=== PATIENT | male | born 1955 | race Caucasian/White ===

== ENCOUNTER 2017-05-08 19:48 | Observation (INO) | payer MEDICARE, OTHER ==
--- NOTE | 2017-05-08 21:30 | CT ---
CT HEAD NONCONTRAST 05/08/17 COMPARISON: 06/28/14. INDICATION: Diplopia. FINDINGS: No evidence of intracranial hemorrhage, mass effect or midline shift or ventriculomegaly. Exam is crystal ssly stable. IMPRESSION: No acute intracranial abnormality. Should neurologic symptoms persists, consider brain MRI as necessa ry for continued assessment. POS: [facility]
[2017-05-08 22:19] LABS: #Eosinphils 0.2 thou/uL (0.0-0.7); #Monocytes 0.4 thou/uL (0.11-0.59); #Neutrophils 2.9 thou/uL (1.40-6.50); %Basophils 0.8 % (0.0-1.0); %Eosinophils 3.3 % (0.0-10.0); %Lymphocytes 35.9 % (21.0-51.0); %Monocytes 7.7 % (0.0-10.0); Hematocrit 42.9 % (42.0-52.0); Mean Platelet Volume 8.5 fL (7.4-10.4); Red Blood Cell (RBC) Count 4.74 mill/uL (4.70-6.10); White Blood Cell (WBC) Count 5.5 thou/uL (4.8-10.8)
[2017-05-08 22:21] LABS: PTT 33.9 SEC (22.9-36.1); Prothrombin Time 13.7 SEC (12.0-14.7)
[2017-05-08 22:36] LABS: ALT (SGPT) 27 U/L (8-55); AST (SGOT) 38 U/L (5-34); Alkaline Phosphatase 66 U/L (40-150); Anion Gap 9 mmol/L (10-20); BUN (Urea Nitrogen) 24 mg/dL (8.4-25.7); Bilirubin, Total 0.6 mg/dL (0.2-1.2); Calc. Creatinine Clearance 0 mL/min (70-130); Calcium 10.2 mg/dL (7.8-10.44); Carbon Dioxide 32 mmol/L (23-31); Chloride 100 mmol/L (98-107); Estimated GFR-MDRD 69; Globulin 4.1 g/dL (2.4-3.5); Protein, Total 8.1 g/dL (5.8-8.1)
[2017-05-08 22:39] LABS: Troponin I 0.013 ng/mL (< 0.028)
[2017-05-08 22:53] LABS: Bilirubin Negative (Negative); Blood, Urine Negative (Negative); Glucose, Urine (Dipstick) Negative (Negative); Ketone, Urine Negative (Negative); Nitrite Negative (Negative); Protein, Urine (Dipstick) Trace mg/dL (Neg-Trace)
[2017-05-08] MEDS ORDERED: Ondansetron HCl/PF 4 MG/2 ML Vial IVP PRN (23:45)
[2017-05-08] MEDS ORDERED: Ondansetron ODT 4 MG TAB SL PRN (23:45)
[2017-05-08] MEDS ORDERED: Acetaminophen 325 MG TAB PO PRN (23:45)
[2017-05-09] MEDS ORDERED: Dextrose 5% in Water 1,000 ML IV PRN (00:03)
[2017-05-09] MEDS ORDERED: Ondansetron ODT 4 MG TAB PO PRN (00:03)
[2017-05-09] MEDS ORDERED: Dextrose 50% Abboject 50 ML SYRINGE SLOW IVP PRN (00:03)
[2017-05-09] MEDS ORDERED: Calcium Carbonate 500 MG ChewTAB PO PRN (00:03)
[2017-05-09] MEDS ORDERED: HumaLOG 300 UNITS/3 ML VIAL SC PRN (00:03)
[2017-05-09 00:28] VITALS: BMI 32.3
[2017-05-09] MEDS: Sodium Chloride 0.9% 1,000 ML IV SCH ×3 (01:38→21:38)
[2017-05-09] MEDS: HYDROcodone/Acetaminophen 10/325 mg Tablet PO PRN ×4 (03:10→20:25)
--- NOTE | 2017-05-09 04:30 | HP-2 ---
DATE OF ADMISSION: 05/08/2017 LOCATION: [facility] in [place], [place] CODE STATUS: FULL. PRIMARY CARE PHYSICIAN: WICHO. ATTENDING PHYSICIAN: Dr. Ruth Warren RESIDENT PHYSICIAN: Dr. Joe Shetty HISTORIAN: The history provided by the patient. CHIEF COMPLAINT: Double vision. HISTORY OF PRESENT ILLNESS: The patient is a 62-year-old male with past medical history of hypertens ion, type 2 diabetes, hepatitis C, status post Harvoni, treatment, and history of Lew's palsy, prese nted for chief complaint of vertical diplopia since Saturday when he woke up Saturday morning. The patie nt reports that the double vision has been unchanged since onset and reports worsening of symptoms wi th head tilted posteriorly and eyes directed forward in addition to worsening with viewing of distant objects and worsening of symptoms with far right gaze. The patient reports his symptoms are relieve d with head tilted downward with eyes forward in addition to close objects. He denied associated narendra st pain, shortness of breath, weakness, numbness, tingling, tinnitus, clumsiness headache, eye pain a nd loss of vision. ER COURSE: In the ER, the patient was given 81 mg of aspirin. PAST MEDICAL HISTORY: 1. Hypertension. 2. Hyperlipidemia. 3. Type 2 diabetes. 4. Lew's palsy. 5. Hepatitis C, status post Harvoni treatment. PAST SURGICAL HISTORY: Cataract surgery bilaterally. ALLERGIES: No known drug allergies. MEDICATIONS: 1. Losartan 100 mg daily. 2. Hydrochlorothiazide 25 mg daily. 3. Metformin 500 mg p.o. b.i.d. 4. Coreg 25 mg b.i.d. 5. [place] 10/325 b.i.d. p.r.n. for pain. 6. Levemir 60 units q.a.c. and at bedtime. 7. NovoLog insulin sliding scale. FAMILY HISTORY: None. SOCIAL HISTORY: The patient has a 27-kaeo-plii history, quit smoking tobacco approximately 5 years a go; however, reports now that he does chewing tobacco for the last 2-3 years and reports that he chew s approximately 2 cans every week. Alcohol: The patient is a prior drinker, sober over [address] desir: The patient reports a prior THC use. Otherwise, denies any other drug use. Denies recent drug use. REVIEW OF SYSTEMS: GENERAL: The patient denies fever, chills, weight, appetite and sleep changes. Denies fatigue. EYES: The patient complains of vision changes, denies eye pain. ENT: Denies nasal congestion, rhinorrhea, sore throat and tinnitus. RESPIRATORY: Denies cough, congestion, shortness of breath. CARDIOVASCULAR: Denies chest pain, palpitations or edema. GI: Denies nausea, vomiting, diarrhea, constipation, abdominal pain. SKIN: Denies rashes, lesions, jaundice. MUSCULOSKELETAL: The patient complains of pain, arthritis and arthralgias. This is chronic and unch anged from his baseline. NEURO: Denies weakness, numbness or syncope. PSYCHIATRIC: Denies anxiety. PHYSICAL EXAMINATION: VITAL SIGNS: In the ER, blood pressure 141/94, pulse 90, respiratory rate 14, T-max 98.4, pulse ox 9 8% on room air. Current weight 113 kilograms. GENERAL: The patient is alert and oriented, in no acute distress. Well-developed, obese, appropriat jeanne interactive. EYES: Pupils are equal, round, reactive to light with accommodation. There is extraocular muscle de ficit involving the right superior oblique muscle. Otherwise, conjunctivae are within normal limits. ENT: TMs are pearly thomas without bulging or erythema. Oropharynx is within normal limits. NECK: Supple, without lymphadenopathy. No thyromegaly. CARDIOVASCULAR: Regular rate and rhythm. No murmurs, rubs or gallops. Radial pulses 2+. RESPIRATORY: Normal effort, no retractions. Lungs are clear to auscultation bilaterally. SKIN: Warm and dry. No cyanosis. ABDOMEN: Soft, nontender, normoactive bowel sounds, no masses, distention or organomegaly. EXTREMITIES: No clubbing, cyanosis or edema. MUSCULOSKELETAL: Structure is within normal limits. Tone within normal limits, musculoskeletal stre ngth is 5/5 and patient has full active range of motion. NEUROLOGIC: The patient has focal neurologic deficit involving cranial nerve 4 and 7. Specifically, deficit of the superior oblique muscle of the right eye as well as very mild ptosis of the left eyel id in addition to residual left-sided deficit of cranial nerve 7 which the patient reports is unchang ed from baseline and has been present since his previous diagnosis of Lew's palsy. The patient's de ep tendon reflexes are 2/4. Cranial nerves II-XII are otherwise intact minus cranial nerve 4 and 7. GCS 15. PSYCHIATRIC: The patient is appropriately interactive. LABORATORY DATA: White blood cell 5.5, hemoglobin 14.3, hematocrit 42.9, platelets 107. Sodium 137, potassium 3.7, chloride 100, bicarbonate 32, BUN 24, creatinine 1.08, glucose 134, calcium 10.2, tot al protein 8.1, albumin 4.0, AST 38, ALT 27, alkaline phosphatase 66, total bilirubin 0.6, estimated GFR is 69. Hemoglobin A1c was 11.9 on prior admission from June of this year. PT 13.7, PTT 33.9, INR 1.0. CK-MB 6.3, troponin I 0.013. IMAGING: Brain CT showed no acute intracranial abnormality. ASSESSMENT AND PLAN: 1. New onset vertical diplopia. We will get had a CT angiogram of the head and neck stat to rule ou t any aneurysm and embolic event versus stenosis. Consider a.m. MRI. This is likely secondary to cr anial 4 palsy on the right. Consider a.m. neuro consult. 2. Hypertension. Patient will need home medications reconciled and has received his home medication s tonight. Okay to continue home medications in the morning as there is low suspicion for transient ischemic attack versus cerebrovascular accident. There is no need for permissive hypertension. 3. Type 2 diabetes. The patient will be continued on home dose Levemir 60 units b.i.d. as well as m oderate insulin sliding scale, Accu-Cheks q.a.c. and at bedtime. 4. Hyperlipidemia. The patient was placed on Atorvastatin 40 mg at bedtime. 5. Thrombocytopenia. Coags are normal. The patient was given a low dose aspirin instead of high do se secondary to the low platelets, we will trend with daily CBC. 6. Hepatitis C, status post Harvoni, treatment. Per patient, this has resolved. 7. Prophylaxis. Patient will be given SCDs and Tums for deep venous thrombosis and gastrointestinal prophylaxis respectively. DISPOSITION/LENGTH OF HOSPITAL STAY: Less than or equal to 2 days. Symptomatic medication will be provided. History and physical exam well as management discussed with Dr. Ruth Warren who agrees with the above history, physical exam, assessment and plan unless otherwise noted in her addendum.
[2017-05-09 05:46] LABS: #Eosinphils 0.1 thou/uL (0.0-0.7); #Lymphocytes 1.8 thou/uL (1.20-3.40); #Monocytes 0.4 thou/uL (0.11-0.59); %Eosinophils 3.2 % (0.0-10.0); %Lymphocytes 40.7 % (21.0-51.0); %Monocytes 9.5 % (0.0-10.0); Hematocrit 40.4 % (42.0-52.0); Mean Platelet Volume 8.6 fL (7.4-10.4); White Blood Cell (WBC) Count 4.4 thou/uL (4.8-10.8)
[2017-05-09 05:56] LABS: Anion Gap 7 mmol/L (10-20); BUN (Urea Nitrogen) 22 mg/dL (8.4-25.7); Calc. Creatinine Clearance 121 mL/min (70-130); Calcium 9.5 mg/dL (7.8-10.44); Carbon Dioxide 29 mmol/L (23-31); Chloride 102 mmol/L (98-107); Cholesterol 137 mg/dl (< 200 Desired); Estimated GFR-MDRD 77; LDL Cholesterol, Calculated 69 mg/dL
[2017-05-09] MEDS ORDERED: INSULIN DETEMIR SC SCH ×2 (09:00→21:00)
[2017-05-09] MEDS ORDERED: Aspirin 81 mg Enteric Coated Tablet PO SCH (09:00)
[2017-05-09] MEDS ORDERED: ADMIXTURE FEE SC SCH ×2 (09:00→21:00)
--- NOTE | 2017-05-09 09:44 | CT ---
PRELIMINARY REPORT/[facility]/EMERGENCY AFTER HOURS PROCEDURE: EXAM: CT Angiography Head With Intravenous Contrast CLINICAL HISTORY: 62 years old, male; Signs and symptoms; Other: R/O CVA TECHNIQUE: Axial computed tomographic angiography images of the head with intravenous contrast using CT angiogra phy protocol. CONTRAST: 100 mL of ISOVUE administered intravenously. COMPARISON: None. FINDINGS: Right internal carotid artery: No acute findings. Intracranial segment is patent with no significant stenosis. No aneurysm. Right anterior cerebral artery: Normal. No occlusion or significant stenosis. No aneurysm. Right middle cerebral artery: Normal. No occlusion or significant stenosis. No aneurysm. Right posterior cerebral artery: Normal. No occlusion or significant stenosis. No aneurysm. Right vertebral artery: Normal as visualized. Left internal carotid artery: No acute findings. Intracranial segment is patent with no significant s tenosis. No aneurysm. Left anterior cerebral artery: Normal. No occlusion or significant stenosis. No aneurysm. Left middle cerebral artery: Normal. No occlusion or significant stenosis. No aneurysm. Left posterior cerebral artery: Normal. No occlusion or significant stenosis. No aneurysm. Left vertebral artery: Normal as visualized. Basilar artery: Normal. No occlusion or significant stenosis. No aneurysm. IMPRESSION: Normal head CTA. Thank you for allowing us to participate in the care of your patient. Dictated and Authenticated by: Gal Manzo MD 05/09/2017 1:23 AM Central Time ([place] & [place]) EXAM: CT Angiography Neck With Intravenous Contrast CLINICAL HISTORY: 62 years old, male; Signs and symptoms; Other: R/O CVA TECHNIQUE: Axial computed tomographic angiography images of the neck with intravenous contrast using CT angiogra phy protocol. MIP reconstructed images were created and reviewed. COMPARISON: No relevant prior studies available. FINDINGS: VASCULATURE: Right common carotid artery: Mild intimal thickening of the distal common carotid arteries bilaterall y. No significant stenosis. No dissection or occlusion. Right internal carotid artery: Normal. Extracranial segment is patent with no significant stenosis. N o dissection or occlusion. Right external carotid artery: Normal. No occlusion. Right vertebral artery: Normal. No significant stenosis. No dissection or occlusion. Left common carotid artery: See above. Left internal carotid artery: Mild mixed atherosclerotic plaque within the proximal left internal car otid artery, causing less than 20% luminal narrowing. Left external carotid artery: Normal. No occlusion. Left vertebral artery: Normal. No significant stenosis. No dissection or occlusion. NECK: Bones/joints: Multilevel cervical spine degenerative changes. Mild reversal of normal cervical spine lordosis, likely secondary to patient positioning and/or degenerative changes. Minimal multilevel deg enerative spondylolisthesis. No acute fracture. No dislocation. Soft tissues: Normal as visualized. No mass. CAROTID STENOSIS REFERENCE USING NASCET CRITERIA: % ICA stenosis = (1 - narrowest ICA diameter/diameter of distal cervical ICA) x 100. Mild - <50% stenosis. Moderate - 50-69% stenosis. Severe - 70-94% stenosis. Near occlusion - 95-99% stenosis. Occluded - 100% stenosis. IMPRESSION: 1. No acute findings. 2. Non-acute findings are described above. Thank you for allowing us to participate in the care of your patient. Dictated and Authenticated by: Gal Manzo MD 05/09/2017 1:40 AM Central Time ([place] & [place]) FINAL REPORT EMERGENCY AFTER HOURS CT ANGIO HEAD AND NECK WITH IV CONTRAST: Date: 05/09/17 CT ANGIO OF HEAD: Multiple axial tomograms obtained through the head with IV enhancement in the arterial phase followin g angio protocol with multiplanar reconstruction and 3D postprocessing. HISTORY: Assess for CVA. FINDINGS: Intracranial internal carotid arteries, visualized cerebral arteries, and basilar artery appear unrem arkable. IMPRESSION: Unremarkable CT angio of head. I am in agreement with the preliminary report issued by [facility]. CT ANGIO OF NECK: Multiple axial tomograms obtained through the neck with IV enhancement in the arterial phase followin g angio protocol with multiplanar reconstruction and 3D postprocessing. HISTORY: CVA. FINDINGS: Common carotid arteries are unremarkable. Carotid bulbs are unremarkable. Mild atherosclerotic change seen in the bulbs bilaterally, slightly more prominent on the left; however, there is no evidence of significant stenosis identified in either common carotid artery or internal carotid artery. Vertebr al arteries are patent. There is a dominant left vertebral. IMPRESSION: No evidence of significant stenosis seen in the extracranial carotid arteries. I am in agreement with the preliminary report issued by [facility]. POS: [facility]
--- NOTE | 2017-05-09 14:14 | PDOC.FM ---
- Subjective Subjective: Complains of vertical diplopia. Denies other neuro focal deficits. - Objective MAR Reviewed: Yes Vital Signs & Weight: Vital Signs (12 hours) Temp Pulse Pulse Resp BP BP BP 05/09/17 11:52 98.3 F 73 18 165/93 H 05/09/17 08:35 73 156/94 H 166/96 H 05/09/17 08:00 98.4 F 74 18 05/09/17 07:54 98.4 F 74 18 156/94 H 05/09/17 04:00 97.7 F 83 18 141/79 H Pulse Ox 05/09/17 11:52 98 05/09/17 08:35 05/09/17 08:00 05/09/17 07:54 98 05/09/17 04:00 98 I&O: 05/08/17 05/09/17 05/10/17 06:59 06:59 06:59 Intake Total 1460 Output Total 1400 1175 Balance 60 -1175 Result Diagrams: 05/09/17 05:30 05/09/17 05:30 Phys Exam - Physical Examination Constitutional: NAD HEENT: PERRLA, moist MMs Respiratory: no wheezing, no rales, no rhonchi Cardiovascular: RRR, no significant murmur Gastrointestinal: soft, non-tender, no distention, positive bowel sounds Musculoskeletal: no edema Psychiatric: normal affect, A&O x 3 Deviation from normal: eomi, perrla, normal strength testing and sensation in b/ l upper and lower extrem Dx/Plan (1) Suspected cerebrovascular accident (CVA) Code(s): I63.9 - CEREBRAL INFARCTION, UNSPECIFIED Status: Acute (2) HTN (hypertension) Code(s): I10 - ESSENTIAL (PRIMARY) HYPERTENSION Status: Chronic (3) HLD (hyperlipidemia) Code(s): E78.5 - HYPERLIPIDEMIA, UNSPECIFIED Status: Chronic (4) Diabetes mellitus type 2 in obese Code(s): E11.69 - TYPE 2 DIABETES MELLITUS WITH OTHER SPECIFIED COMPLICATION; E66.9 - OBESITY, UNSPECIFIED Status: Chronic (5) Hx of hepatitis C Code(s): Z86.19 - PERSONAL HISTORY OF OTHER INFECTIOUS AND PARASITIC DISEASES Status: Chronic (6) Anxiety Code(s): F41.9 - ANXIETY DISORDER, UNSPECIFIED Status: Chronic (7) Peripheral neuropathy Code(s): G62.9 - POLYNEUROPATHY, UNSPECIFIED Status: Chronic - Plan Plan: 62 yo male presents with vertical diplopia admitted for CVA rule out. 1.)CVA rule out CT without contrast of brain: negative for intracranial bleede CTA Head and NEck: negative for sig blockage MRI pending Lipid profile Atorvastatin 40mg, plan to increase to 80mg Aspirin 325mg daily 2.)HTN continue Lisinopril 3.)DM, type 2 metformin BI 3.)HLD atorvastain 40mg
--- NOTE | 2017-05-09 15:01 | ADD-PRG ---
ADDENDUM This is an addendum to the note of Dr. Brittny Duarte. Mr. Johnston is a pleasant 62-year-old white male who was admitted with a probable TIA versus CVA consist ing of vertical diplopia. This morning he is awake, alert, but still complaining of the diplopia, al though he has no other focal neurological deficits. We are in the midst of a workup, which involved so far a normal CTA of the brain and neck. We are awaiting the results of an MRI, although the MRI polo sanchez is currently down. In the event, clinically and neurologically he is stable and we have insti tuted treatment with aspirin and a statin.
[2017-05-09] MEDS ORDERED: ISOVUE-370 76%-LOCM 1 ML ONE (15:51)
[2017-05-09] MEDS ORDERED: Gadobenate Dimeglumine 529 MG/1 ML (20ML VIAL) ONE (15:57)
--- NOTE | 2017-05-09 17:18 | MRI ---
MRI BRAIN WITH AND WITHOUT GADOLINIUM CONTRAST: History: Vision abnormality. Altered mental status. FINDINGS: There is no evidence of acute intracranial hemorrhage or infarct. The ventricles appear normal in siz e, shape, and position. There is no mass effect, shift of midline structures or abnormal areas of con trast enhancement. IMPRESSION: No acute intracranial abnormalities are demonstrated. POS: [facility]
[2017-05-09] MEDS: HumaLOG 300 UNITS/3 ML VIAL SC SCH (17:46)
[2017-05-09] MEDS: metFORMIN 500 MG TAB PO SCH (17:46)
[2017-05-09] MEDS: Carvedilol 25 MG TAB PO SCH (20:26)
[2017-05-09] MEDS ORDERED: LEVEMIR SC SCH (21:00)
[2017-05-09] MEDS ORDERED: Atorvastatin Calcium 40 MG TAB PO SCH (21:00)
[2017-05-09] MEDS: PRE FILLED SC SCH (21:37)
[2017-05-09] MEDS: INSULIN DETEMIR SC SCH (21:37)
[2017-05-10] MEDS: HYDROcodone/Acetaminophen 10/325 mg Tablet PO PRN ×3 (04:23→12:44)
[2017-05-10 05:42] LABS: #Eosinphils 0.2 thou/uL (0.0-0.7); #Lymphocytes 1.8 thou/uL (1.20-3.40); #Monocytes 0.4 thou/uL (0.11-0.59); #Neutrophils 2.3 thou/uL (1.40-6.50); %Basophils 0.7 % (0.0-1.0); %Eosinophils 3.5 % (0.0-10.0); %Lymphocytes 38.3 % (21.0-51.0); %Monocytes 9.3 % (0.0-10.0); Hematocrit 40.7 % (42.0-52.0); Mean Platelet Volume 8.5 fL (7.4-10.4); Red Blood Cell (RBC) Count 4.51 mill/uL (4.70-6.10); White Blood Cell (WBC) Count 4.8 thou/uL (4.8-10.8)
[2017-05-10 05:58] LABS: Anion Gap 9 mmol/L (10-20); BUN (Urea Nitrogen) 15 mg/dL (8.4-25.7); Calc. Creatinine Clearance 139 mL/min (70-130); Calcium 9.6 mg/dL (7.8-10.44); Carbon Dioxide 28 mmol/L (23-31); Chloride 106 mmol/L (98-107); Estimated GFR-MDRD 89
[2017-05-10] MEDS: Sodium Chloride 0.9% 1,000 ML IV SCH (08:59)
[2017-05-10] MEDS: HumaLOG 300 UNITS/3 ML VIAL SC SCH ×2 (08:59→12:09)
[2017-05-10] MEDS: metFORMIN 500 MG TAB PO SCH (08:59)
[2017-05-10] MEDS ORDERED: Hydrochlorothiazide 25 MG TAB PO SCH (09:00)
[2017-05-10] MEDS ORDERED: Valsartan 80 MG TAB PO SCH (09:00)
[2017-05-10] MEDS ORDERED: Aspirin 325 mg Enteric Coated Tablet PO SCH (09:00)
[2017-05-10] MEDS: Carvedilol 25 MG TAB PO SCH (09:00)
[2017-05-10] MEDS: INSULIN DETEMIR SC SCH (09:02)
[2017-05-10] MEDS: PRE FILLED SC SCH (09:02)
[2017-05-10 11:38] VITALS: BP 140/87; TEMP 98.2
--- NOTE | 2017-05-10 13:06 | PDOC.FM ---
- Subjective Subjective: Improved diplopia this morning. MRI negative. Pt without complaints. - Objective MAR Reviewed: Yes Vital Signs & Weight: Vital Signs (12 hours) Temp Pulse Resp BP Pulse Ox 05/10/17 11:20 98.2 F 73 18 140/87 95 05/10/17 07:52 98.1 F 71 16 05/10/17 07:20 97.5 F L 75 18 136/82 98 05/10/17 04:11 98.1 F 71 16 157/86 H 97 Weight Weight 113.353 kg I&O: 05/09/17 05/10/17 05/11/17 06:59 06:59 06:59 Intake Total 1460 2586 Output Total 1400 3135 Balance 60 -549 Result Diagrams: 05/10/17 05:17 05/10/17 05:17 Phys Exam - Physical Examination Constitutional: NAD HEENT: PERRLA, moist MMs, sclera anicteric Respiratory: no wheezing, no rales, no rhonchi, clear to auscultation bilateral Cardiovascular: RRR, no significant murmur, no rub Gastrointestinal: soft, non-tender, no distention, positive bowel sounds Musculoskeletal: no edema, pulses present CN2-12 intact Neurological: non-focal, normal sensation, moves all 4 limbs Psychiatric: normal affect, A&O x 3 Skin: no rash Dx/Plan (1) Suspected cerebrovascular accident (CVA) Code(s): I63.9 - CEREBRAL INFARCTION, UNSPECIFIED Status: Acute (2) HTN (hypertension) Code(s): I10 - ESSENTIAL (PRIMARY) HYPERTENSION Status: Chronic (3) HLD (hyperlipidemia) Code(s): E78.5 - HYPERLIPIDEMIA, UNSPECIFIED Status: Chronic (4) Diabetes mellitus type 2 in obese Code(s): E11.69 - TYPE 2 DIABETES MELLITUS WITH OTHER SPECIFIED COMPLICATION; E66.9 - OBESITY, UNSPECIFIED Status: Chronic (5) Hx of hepatitis C Code(s): Z86.19 - PERSONAL HISTORY OF OTHER INFECTIOUS AND PARASITIC DISEASES Status: Chronic (6) Anxiety Code(s): F41.9 - ANXIETY DISORDER, UNSPECIFIED Status: Chronic (7) Peripheral neuropathy Code(s): G62.9 - POLYNEUROPATHY, UNSPECIFIED Status: Chronic - Plan Plan: 62 yo male presents with vertical diplopia admitted for CVA rule out. 1.)CVA rule out, likely TIA affecting CN4 of right eye vs CN arteritis symptoms worse when looking left and down. CT without contrast of brain: negative for intracranial bleede CTA Head and NEck: negative for sig blockage MRI negative for acute ischemic infarct or mass Atorvastatin 40mg increased to 80mg daily. Aspirin 325mg daily Opthomology consult placed CRP and ESR normal 2.)HTN continue Losartan and the HCTZ daily 3.)DM, type 2 metformin BID 11U Levemir sc BID 7U Humalog before meals 3.)HLD atorvastain 80mg Dispo: okay to discharge home today with neurology and pcp follow-up
--- NOTE | 2017-05-10 14:41 | ADD-PRG ---
DATE OF SERVICE: 05/10/2017 Please add it as an addendum to the note of Dr. Nadia Gallegos. Mr. Johnston's MRI does not demonstrate CVA. He likely had a TIA, but the differential for vertical dipl opia is quite extensive. We will set him up for an outpatient to Neurology consult. Ophthalmology s aw the patient yesterday and did not believe the patient had any central nervous system disturbance c ausing his vertical diplopia. In the event, Mr. Johnston looks and feels much better this morning, altho ugh he still has occasional vertical diplopia when glancing to his left and downward. We will go ahe ad and continue him on aspirin and high-dose statins with [facility].
[2017-05-11 08:17] LABS: U1RNP/snRNP IGG Autoabs 2.3 AI (0.0-0.9)
--- NOTE | 2017-05-13 13:16 | DIS-2 ---
DATE OF ADMISSION: 05/08/2017 DATE OF DISCHARGE: 05/10/2017 ADMITTING RESIDENT: Joe Shetty DO. ADMITTING ATTENDING: Dr. Ruth Warren. DISCHARGE RESIDENT: Dr. Brittny Duarte. DISCHARGE ATTENDING: Dr. Jose Monique. PROCEDURES: 1. Brain CT, no acute intracranial abnormality. 2. CTA head and neck, no acute findings. 3. Brain MRI, no acute intracranial abnormalities demonstrated. CONSULTANTS: Ophthalmology, Dr. Knapp. DISCHARGE MEDICATIONS: 1. Aspirin 325 mg daily. 2. Atorvastatin 80 mg daily. 3. Coreg 25 mg oral twice daily. 4. Metformin 1000 mg oral twice daily. 5. Humalog 7 units subcutaneous 3 times daily with meals. 6. Hydrochlorothiazide 25 mg daily. 7. [place] 1 tab q.6 p.r.n. 8. Losartan 100 mg oral daily. 9. Levemir 11 units subcutaneous twice daily. DISCONTINUE MEDICATIONS: 1. Valsartan/hydrochlorothiazide 1 tab daily. 2. Metformin 500 mg twice daily. 3. Insulin aspart 100 mg subcutaneous 3 times daily. 4. Carvedilol 25 mg oral twice daily. PRIMARY DIAGNOSES: 1. 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 2. Hyperlipidemia. 3. Type 2 diabetes. 4. Hypertension. HISTORY OF PRESENT ILLNESS AND HOSPITAL COURSE: This is a 62-year-old man with past medical history of hypertension, had diabetes and hep C. He also has a history of Lew's palsy presents with vertical diplopia of several days' duration. His symptoms are worse when he looks left and down. Patient was admitted for this vertical diplopia with concern for a CVA. His imaging tests, although did not suggest an acute ischemic or hemorrhagic stroke; however, he did endorse that he has not been taking his statin or blood pressure medications regularly. After ruling out a stroke, Ophthalmology was consulted. Dr. Knapp came and saw the patient, however, at time his vertical diplopia had significantly improved, almost to the point of being resolved. Patient was ready to go home. After evaluation by Dr. Knapp, he assessed that the vertical diplopia was likely due to diabetic microvascular ischemia of the right fourth cranial nerve affecting the superior oblique muscle. This would explain why the patient's diplopia was worse in leftward and downward gaze. Dr. Knapp explained that this would likely resolve over 2-3 months; however, the patient seemed to be having those mentioned symptoms acutely. The patient during his hospital stay was otherwise stable. 2. Hyperlipidemia. Patient was restarted on a high-intensity statin based on his ASCVD risk. 3. Diabetes. The patient was started on insulin regimen 11 units of long- acting b.i.d. and 7 units subcutaneous based on his weight and blood sugars were monitored in the hospital. 4. Hypertension. Patient's blood pressure was monitored during this hospital stay, he ranged from the 130s to 160s systolic and 70s-90s diastolic. He was discharged on losartan 100 mg daily as well as carvedilol 25 mg twice a daily. DISPOSITION: Stable. DIET: Heart healthy and diabetic diet. ACTIVITY: It was recommended that the patient exercise regularly. FOLLOWUP: Recommended that the patient to follow up with his primary care provider in 3-7 days. YIN
--- NOTE | 2017-06-11 11:50 | EKG ---
Test Reason : Blood Pressure : / mmHG Vent. Rate : 084 BPM Atrial Rate : 084 BPM P-R Int : 202 ms QRS Dur : 086 ms QT Int : 376 ms P-R-T Axes : 051 -52 018 degrees QTc Int : 444 ms Normal sinus rhythm Left axis deviation Inferior infarct , age undetermined Abnormal ECG Confirmed by REGINA HENDRICKSON, LULY ([id number]), editor greeting card LEYDI RAMOS ([id number]) on 06/11/2017 11:50:50 AM Referred By: Confirmed By:LULY TAPIA MD
== END 2017-05-10 13:00 | disposition home or self-care (01) ==
LOC: ERS 19:48 → 2SE 23:45
PROVIDERS: ADMIT Student in an Organized Health Care Education/Training Program; ATTEND Student in an Organized Health Care Education/Training Program
DX: H53.2 Diplopia (principal); I10 Essential (primary) hypertension; E78.5 Hyperlipidemia, unspecified; D69.6 Thrombocytopenia, unspecified; F41.9 Anxiety disorder, unspecified; E11.42 Type 2 diabetes mellitus with diabetic polyneuropathy; F17.228 Nicotine dependence, chewing tobacco, with other nicotine-induced disorders; Z79.899 Other long term (current) drug therapy; Z86.19 Personal history of other infectious and parasitic diseases
CPT/HCPCS: 70450; 70496; 70498; 70553; 80048 ×2; 80053; 80061; 81003; 82553; 82962 ×3; 83036; 84443; 84484; 85025 ×3; 85610; 85652; 85730; 86038; 86140; 93005; 96360; 96361 ×2; 97116; 97139 ×4; 99285; G0378; G8978; G8979; G8980; G8987; G8988; G8989; 36415; 36416; A9579; G8996-GN-CH; G8997-GN-CH; G8998-GN-CH; J1815

== ENCOUNTER 2019-06-01 07:56 | Outpatient (CLI) | payer OTHER ==
--- NOTE | 2019-06-01 09:39 | RAD ---
LEFT FOOT 2 VIEWS: Date: 06/01/19 HISTORY: Arthritis. COMPARISON: None. FINDINGS: Moderate plantar calcaneal spur with ossification along the long plantar ligament and the plantar fas josefa. No acute displaced fracture or malalignment. Mild increased medial and longitudinal arch. IMPRESSION: 1. No acute fracture or malalignment. 2. Ossification along the long plantar ligament and the plantar fascia with moderate size plantar ca lcaneal spur, can be sequelae of plantar fasciitis. POS: [facility]
--- NOTE | 2019-06-01 09:40 | RAD ---
RIGHT FOOT 2 VIEWS: Date: 06/01/19 HISTORY: Arthritis. COMPARISON: None. 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 Mild hallux valgus defor mity with lateral subluxation of the great toe sesamoids. Increased medial and longitudinal arch. Ossification along the plantar fascia. IMPRESSION: Chronic findings. No acute abnormality. POS: [facility]
== END 2019-06-01 07:57 | disposition home or self-care (01) ==
LOC: RAD 07:56
PROVIDERS: ATTEND Orthopaedic Surgery
DX: E11.9 Type 2 diabetes mellitus without complications (principal); M19.90 Unspecified osteoarthritis, unspecified site
CPT/HCPCS: 36415; 80053; 81001; 82043; 86803; 87522

== ENCOUNTER 2020-11-04 08:56 | Outpatient (CLI) | payer OTHER ==
[2020-11-04] MEDS ORDERED: Magnevist 469MG/ML 20 ML VIAL ONE (10:11)
== END 2020-11-04 08:57 | disposition home or self-care (01) ==
LOC: BICMRI 08:56
PROVIDERS: ATTEND Internal Medicine
DX: K74.60 Unspecified cirrhosis of liver (principal); B18.2 Chronic viral hepatitis C; R12 Heartburn; R11.0 Nausea; K80.20 Calculus of gallbladder without cholecystitis without obstruction; D35.02 Benign neoplasm of left adrenal gland; N28.1 Cyst of kidney, acquired
CPT/HCPCS: 74183; 82565

== ENCOUNTER 2021-05-18 09:55 | Outpatient (CLI) | payer OTHER | END 2021-05-18 09:56 | disposition home or self-care (01) | LOC: BICRAD 09:55 | PROVIDERS: ATTEND Chiropractor | DX: M19.90 Unspecified osteoarthritis, unspecified site (principal) ==

== ENCOUNTER 2021-06-07 08:33 | Outpatient (CLI) | payer OTHER | END 2021-06-07 08:34 | disposition home or self-care (01) | LOC: ULT 08:33 | PROVIDERS: ATTEND Internal Medicine | DX: K74.60 Unspecified cirrhosis of liver (principal); B18.2 Chronic viral hepatitis C; K29.50 Unspecified chronic gastritis without bleeding; K80.20 Calculus of gallbladder without cholecystitis without obstruction | CPT/HCPCS: 76700 ==

== ENCOUNTER 2021-12-14 08:29 | Outpatient (CLI) | payer OTHER ==
[~2021-12-14 08:29] MED LIST: Gadobenate Dimeglumine 529 MG/1 ML (20ML VIAL) ONE
== END 2021-12-14 08:30 | disposition home or self-care (01) ==
LOC: BICMRI 08:29
PROVIDERS: ATTEND Internal Medicine
DX: K74.60 Unspecified cirrhosis of liver (principal); R11.0 Nausea; K80.20 Calculus of gallbladder without cholecystitis without obstruction; D35.02 Benign neoplasm of left adrenal gland; D35.01 Benign neoplasm of right adrenal gland; R93.2 Abnormal findings on diagnostic imaging of liver and biliary tract
CPT/HCPCS: 74183; 82565; A9577